=== PATIENT | female | born 1965 | race Caucasian/White ===

== ENCOUNTER 2024-11-27 14:55 | Outpatient (CLI) | payer BC | END 2024-11-27 14:56 | disposition home or self-care (01) | LOC: CSHMAMMO 14:55 | PROVIDERS: ATTEND Family Medicine | DX: N64.89 Other specified disorders of breast (principal) | CPT/HCPCS: G0279 ==

== ENCOUNTER 2024-12-11 10:42 | Outpatient (CLI) | payer BC | END 2024-12-11 10:43 | disposition home or self-care (01) | LOC: CSHMRI 10:42 | PROVIDERS: ATTEND Family Medicine | DX: N63.10 Unspecified lump in the right breast, unspecified quadrant (principal); N64.89 Other specified disorders of breast | CPT/HCPCS: C8908 ==